=== PATIENT | male | born 1975 | race African-American/Black ===

== ENCOUNTER 2018-03-17 16:09 | Emergency (ER) | payer SELFPAY | END 2018-03-17 17:30 | disposition home or self-care (01) | LOC: ER 16:09 | DX: M79.604 Pain in right leg (principal); R60.0 Localized edema; J45.909 Unspecified asthma, uncomplicated; F12.10 Cannabis abuse, uncomplicated; F10.10 Alcohol abuse, uncomplicated; W18.39XA Other fall on same level, initial encounter; Y93.89 Activity, other specified; Y99.8 Other external cause status; Y92.89 Other specified places as the place of occurrence of the external cause | CPT/HCPCS: 73564; 73590; 73610; 93971; 99284-25 ==

== ENCOUNTER 2020-07-22 01:41 | Emergency (ER) | payer SELFPAY ==
[~2020-07-22] VITALS: Ht 162.6 cm; Wt 60.0 kg
[~2020-07-22 01:41] MED LIST: CYCL10TA2 PO; DICL50TA4 PO; GABA300C18 PO
[2020-07-22] MEDS ORDERED: LIDOCAINE 1%/EPI 1:100,000 20 ML VIAL. INJ ONE (02:15)
--- NOTE | 2020-07-22 02:58 | RAD ---
EXAM: 1. CT HEAD WITHOUT CONTRAST. 2. CT CERVICAL SPINE WITHOUT CONTRAST. HISTORY: Fall, trauma. TECHNIQUE: Computed tomography of the head and cervical spine was performed without intravenous contrast. One or more of the following individualized dose reduction techniques were utilized for this examination: 1. Automated exposure control. 2. Adjustment of the mA and/or kV according to patient size. 3. Use of iterative reconstruction technique. COMPARISON: None. FINDINGS: There is no intracranial hemorrhage. Gibson-white differentiation is preserved. The ventricles are normal in size and position. There is a small mucus retention cyst in the left aspect of the frontal sinus. The orbits are unremarkable. The temporal bones are unremarkable. The calvarium reveals no suspicious lesions. There is a laceration and mild soft tissue swelling along the forehead. Alignment is maintained. The craniocervical junction is unremarkable. No fractures are identified. Degenerative disc disease is mild from C3 through C7. There is a Schmorl's node at the superior endplate of C7. There is no prevertebral soft tissue swelling. At C2-3, there is no significant stenosis. At C3-4, uncovertebral osteoarthritis is mild bilaterally. Neural foraminal stenosis is mild bilaterally. There is a moderate posterior disc bulge. Central canal stenosis appears mild. At C4-5, there is a small posterior disc bulge. Uncovertebral osteoarthritis is mild bilaterally. Neural foraminal stenosis is mild on the left. At C5-6, there is a small posterior disc bulge. A small to moderate central protrusion is suspected. Central canal stenosis appears mild to moderate. Uncovertebral osteoarthritis is mild bilaterally. Neural foraminal stenosis is mild bilaterally. At C6-7, there is a moderate central disc protrusion. Central canal stenosis appears moderate. IMPRESSION: 1. Laceration along the forehead. No acute intracranial findings. 2. No cervical fracture or malalignment. 3. Central canal stenosis appears up to moderate as detailed above. MRI could further assess stenosis if there is persistent concern. Electronically signed by: Karina Del Rio MD (07/22/2020 2:55 AM) [facility]
--- NOTE | 2020-07-22 03:15 | ED.ADGEN ---
Past Medical History Past Medical History: Asthma Past Surgical History: No Surgical History Smoking Status: Current Every Day Smoker Alcohol Use: Heavy Drug Use: Marijuana General Adult EDM: Chief Complaint: HEAD INJURY/TRAUMA HPI: HPI: Patient is a 44 year old male with 2 lacerations to forehead, small abrasion to the nose after a fall. Patient has been drinking heavily today and fell and struck his head on a cinder block, denies any loss of consciousness. Fall was ground-level mechanical. Last tetanus unknown. Review of Systems: Review of Systems: Constitutional: Denies fever or chills. [] Eyes: Denies change in visual acuity. [] HENT: Denies nasal congestion or sore throat. [] Hematoma to forehead Respiratory: Denies cough or shortness of breath. [] Cardiovascular: Denies chest pain or edema. [] GI: Denies abdominal pain, nausea, vomiting, bloody stools or diarrhea. [] : Denies dysuria. [] Musculoskeletal: Denies back pain or joint pain. [] Integument: Denies rash. Laceration Neurologic: Denies headache, focal weakness or sensory changes. [] Endocrine: Denies polyuria or polydipsia. [] Lymphatic: Denies swollen glands. [] Psychiatric: Denies depression or anxiety. [] Current Medications: Current Medications Medications (Trade) Dose Ordered Sig/Isela Start Time Stop Time Status Last Admin Dose Admin Lidocaine/ Epinephrine (LIDOCAINE 1%-EPI 1:100,000 Multi-Dose) 20 ml 1X ONCE 07/22/20 02:00 07/22/20 02:16 UNV 07/22/20 01:47 20 ML Allergies: Allergies: Allergies Coded Allergies Type Severity Reaction Last Updated Verified No Known Drug Allergies 05/24/15 No Physical Exam: PE: Constitutional: Well developed, well nourished, no acute distress, non-toxic appearance. HENT: Normocephalic, hematoma to forehead bilateral external ears normal, oropharynx moist, no oral exudates, nose normal. [] Eyes: PERRLA, EOMI, conjunctiva normal, no discharge. [] Neck: Normal range of motion, no tenderness, supple, no stridor. [] Cardiovascular:Heart rate regular rhythm, no murmur [] Lungs & Thorax: Bilateral breath sounds clear to auscultation [] Abdomen: Bowel sounds normal, soft, no tenderness, no masses, no pulsatile masses. [] Skin: Warm, dry, no erythema, no rash. [] [] 3 cm to centimeter to mid forehead, 2 cm laceration above left eyebrow, small abrasion to bridge of nose laceration in mid forehead, Back: No tenderness, no CVA tenderness. [] Extremities: No tenderness, no cyanosis, no clubbing, ROM intact, no edema. [] Neurologic: Alert and oriented X 3, normal motor function, normal sensory function, no focal deficits noted. [] Psychologic: Affect normal, judgement normal, mood normal. [] Current Patient Data: Vital Signs: Vital Signs Date Time Temp Pulse Resp B/P (MAP) Pulse Ox O2 Delivery O2 Flow Rate FiO2 07/22/20 01:56 97.4 91 17 143/84 (103) 99 Room Air 97.4 EKG: EKG: [] Heart Score: Risk Factors: Risk Factors: DM, Current or recent (<one month) smoker, HTN, HLP, family history of CAD, obesity. Risk Scores: Score 0 - 3: 2.5% MACE over next 6 weeks - Discharge Home Score 4 - 6: 20.3% MACE over next 6 weeks - Admit for Clinical Observation Score 7 - 10: 72.7% MACE over next 6 weeks - Early Invasive Strategies Radiology/Procedures: Radiology/Procedures: PROCEDURE: CT HEAD AND CERVICAL SPINE WO EXAM: 1. CT HEAD WITHOUT CONTRAST. 2. CT CERVICAL SPINE WITHOUT CONTRAST. HISTORY: Fall, trauma. TECHNIQUE: Computed tomography of the head and cervical spine was performed without intravenous contrast. One or more of the following individualized dose reduction techniques were utilized for this examination: 1. Automated exposure control. 2. Adjustment of the mA and/or kV according to patient size. 3. Use of iterative reconstruction technique. COMPARISON: None. FINDINGS: There is no intracranial hemorrhage. Gibson-white differentiation is preserved. The ventricles are normal in size and position. There is a small mucus retention cyst in the left aspect of the frontal sinus. The orbits are unremarkable. The temporal bones are unremarkable. The calvarium reveals no suspicious lesions. There is a laceration and mild soft tissue swelling along the forehead. Alignment is maintained. The craniocervical junction is unremarkable. No fractures are identified. Degenerative disc disease is mild from C3 through C7. There is a Schmorl's node at the superior endplate of C7. There is no prevertebral soft tissue swelling. At C2-3, there is no significant stenosis. At C3-4, uncovertebral osteoarthritis is mild bilaterally. Neural foraminal stenosis is mild bilaterally. There is a moderate posterior disc bulge. Central canal stenosis appears mild. At C4-5, there is a small posterior disc bulge. Uncovertebral osteoarthritis is mild bilaterally. Neural foraminal stenosis is mild on the left. At C5-6, there is a small posterior disc bulge. A small to moderate central protrusion is suspected. Central canal stenosis appears mild to moderate. Uncovertebral osteoarthritis is mild bilaterally. Neural foraminal stenosis is mild bilaterally. At C6-7, there is a moderate central disc protrusion. Central canal stenosis appears moderate. IMPRESSION: 1. Laceration along the forehead. No acute intracranial findings. 2. No cervical fracture or malalignment. 3. Central canal stenosis appears up to moderate as detailed above. MRI could further assess stenosis if there is persistent concern. [] Impression: Laceration repair with 1% lidocaine with epi, 4 cc injected along incisions, closed with 3-0 absorbable sutures. 4 sutures and laceration above eyebrow, 7 sutures and laceration in mid forehead Course & Med Decision Making: Course & Med Decision Making Pertinent Labs and Imaging studies reviewed. (See chart for details) [] Brayan Disclaimer: Brayan Disclaimer: This electronic medical record was generated, in whole or in part, using a voice recognition dictation system. Departure Departure Impression: Primary Impression: Fall from standing Additional Impression: Laceration of forehead Disposition: 01 DC HOME SELF CARE/HOMELESS Condition: STABLE Referrals: NO PCP (PCP) Patient Instructions: Laceration Care, Adult Problem Qualifiers BLUE MALDONADO MD Jul 22, 2020 03:15
[2020-07-22 03:25] VITALS: BP 135/76
[2020-07-22] MEDS ORDERED: NEOMY/BACITR/POLYMYXIN OINT PACKET. TP ONE (03:30)
== END 2020-07-22 03:48 | disposition home or self-care (01) ==
LOC: ER 01:41
DX: S01.81XA Laceration without foreign body of other part of head, initial encounter (principal); R60.0 Localized edema; J45.909 Unspecified asthma, uncomplicated; F17.200 Nicotine dependence, unspecified, uncomplicated; F12.90 Cannabis use, unspecified, uncomplicated; F10.10 Alcohol abuse, uncomplicated; W18.39XA Other fall on same level, initial encounter; Y93.89 Activity, other specified; Y92.89 Other specified places as the place of occurrence of the external cause; Y99.8 Other external cause status
CPT/HCPCS: 12013; 70450; 72125; 99285; J3490